=== PATIENT | male | born 1975 | race Caucasian/White ===

== ENCOUNTER 2017-03-03 10:58 | Emergency (ER) | payer BC ==
[~2017-03-03] VITALS: Ht 167.6 cm; Wt 92.4 kg
[~2017-03-03 10:58] MED LIST: ASPI81TA2 PO
[2017-03-03 11:00] VITALS: Ht 167.6 cm; Wt 92.4 kg
--- OUTSIDE RECORDS SUMMARY | 2017-03-03 11:02 | XMS REPORT | Continuity of Care Document ---
Author Author [facility] Organization [facility] Address Unknown Phone Unavailable Care Team Providers [facility] Name Role Phone GABRIELE NIETO MD Primary Care Physician [phone] Insurance Providers Guarantor Kitty Xiong Address [address] [place] [address] [facility] Other Policy Number [id number] Subscriber's Name Kitty Xiong Relationship 18 Self Group Number [id number] Chief Complaint and Reason for Visit Chief Complaint General Reason for Visit Chest pain in adult Problems Past Problems Medical Problem Onset Date Chest pain in adult Unknown Medications Current Home Medications Medication Dose Units Route Directions Days Qty Instructions Start Date Aspirin 81 Mg Tab.chew 1 Tab Oral Daily 30 Tablet 03/03/17 Social History No social history. Hospital Discharge Instructions No hospital discharge instructions. Plan of Care Discharge Date 03/03/17 10:45am Disposition 02 TO [facility] Condition at Discharge Stable Instructions/Education Provided Chest Pain (DC) Prescriptions See Medication Section Referrals GABRIELE NIETO MD Address: [address] [place] [address] [place] [phone] Additional Instructions/Education Go to [facility] Emergency Department now. Functional Status No functional status results. Allergies, Adverse Reactions, Alerts No known allergies. Immunizations Query Response on File Recorded Date/Time Hx Tetanus, Diptheria, Pertussis Y 200006/03/09 10:04am Hx Tetanus, Diptheria, Pertussis Y 200006/03/09 10:04am Influenza Vaccine Hx NO 03/03/17 10:14am Vital Signs Acute Vital Signs Vital Response Date/Time Temperature (Fahrenheit) 97.7 deg F (96.8 - 99.1) 03/03/2017 10:05am Temperature (Calculated Celsius) 36.90249 degrees C (36.0 - 37.3) 03/03/2017 10:05am Pulse Rate (adult) 69 bpm (60 - 100) 03/03/2017 10:05am Respiratory Rate 16 breaths/min (10 - 20) 03/03/2017 10:05am O2 Sat by Pulse Oximetry 96 % (90 - 100) 03/03/2017 10:05am Blood Pressure 126/86 mm Hg 03/03/2017 10:05am Height (Inches) 66.00 inches 03/03/2017 10:05am Weight (Kilograms) 43.100 kg 03/03/2017 10:05am Body Mass Index (BMI) 15.0 03/03/2017 10:05am Results No known relevant diagnostic tests, laboratory data and/or discharge summary. Procedures No known history of procedures. Encounters Encounter Location Arrival/Admit Date Discharge/Depart Date Attending Provider Departed Emergency Room [facility] 03/03/17 10:02am 03/03/17 10: 45am SARA VASQUEZ APRN Recent Diagnosis
--- NOTE | 2017-03-03 11:08 | NUR ---
PROVIDER DR HODGE IN ROOM W/ PT.
--- NOTE | 2017-03-03 11:09 | NUR ---
PO MED ASA GIVEN CHARTED W/ PT TOLERANCE.
[2017-03-03] MEDS ORDERED: NO ROUTINE MEDS (11:10)
[2017-03-03] MEDS ORDERED: ASPIRIN 81 MG CHEWABLE TABLET PO ONE (11:15)
--- NOTE | 2017-03-03 11:16 | ERPDOC ---
Departure Disposition Decision Date: Mar 03, 2017 Disposition Decision Time: 12:39 Disposition: 01 DISCHARGED HOME, SELF-CARE Impression Impression Impression: Primary Impression: Costochondritis Additional Impression: Chest pain Chest pain type: unspecified Qualified Codes: R07.9 - Chest pain, unspecified Severity: Mild Condition: Improved Seen By: Physician only Referrals: GABRIELE NIETO MD (PCP/Family) 1 Day Patient Instructions: Costochondritis (ED), Chest Pain (ED) Problems/Meds/Labs Reviewed?: Yes Medications reviewed and manag: Yes Departure Forms: Return to Work/School Permit Return to Work/School Date: Mar 04, 2017 Follow up care ordered?: Yes Mental Status: Alert, Oriented Scripts Tramadol HCl (Ultram) 50 Mg Tablet 50 MG PO Q6HR for pain, #20 TAB 0 Refills Take 1 tablet, by mouth, every 6 hours. Prov: NOMAN HODGE DO 03/03/17 HPI - Chest Pain General Chief Complaint: Chest Pain Stated Complaint: CHEST PAIN Time Seen by Provider: 11:08 Source: patient (Patient presents [facility] the ER from [facility] for chest pain. Patient apparently developed Right Anterior chest wall pain, after a vomiting episode last night at home. Pain is located in the Right upper anterior chest wall, which is reproducable with palpation and ROM of the right shoulder. Patient states he "Over did it when he vomited last night." Patient doest not speak Czech, a friend is translating.) Exam Limitations: no limitations HPI - Chest Pain Occurred At: home Onset/Timing: Changing over time Duration: 12-24 hrs Pain/Severity Scale: Now: 4/10 (with palpation, deep inhalation, and ROM right Shoulder) Activities at Onset/Context: other (vomiting) Location: anterior R Quality: 'pain' Modifying Factors: IMPROVES WITH: other (ROM right Shoulder), WORSE WITH: movement, palpation Associated Symptoms: denies symptoms Chest Pain Radiation: no radiation Nitro Today/Relief: no nitro taken today Aspirin Treatment Today: 325 mg x 1, provided by ED Prior Chest Pain/Cardiac Martin: no prior chest pain Hx of Similar Symptoms: Yes (Several years ago with stress) Allergies: Coded Allergies: No Known Allergies (Unverified , 03/03/17) Viagra/ED med in past 36 hrs: No Past History Past Medical History Pt denies signifigant PMH Hx Echocardiogram: No Surgical History Denies Surgeries Family History Family PMH: FOUND: diabetes Vaccines Hx Tetanus, Diptheria, Pertuss: Yes (2000) Social History Smoking Status: Never smoker Does patient use chewing tobac: No Second Hand Exposure: No Substance Use Type: does not use Alcohol Intake: occasionally Last Drink: unknown Housing: house Service: No Current Occupational Status: employed Occupational Hazard: No Advance Directives: Yes Full Code Review of Systems Constitutional Constitutional: DENIES: chills, fever Eyes Lids/Accessories: DENIES: erythema, swelling ENMT Ears: DENIES: erythema, pain Balance: DENIES: ataxia, vertigo Sinuses: DENIES: congestion, rhinorrhea Mouth/Throat: DENIES: sore throat Cardiovascular Cardiac: chest pain, DENIES: dyspnea on exertion, orthopnea Rhythm/Rate: DENIES: tachycardia Pulmonary Respiratory: DENIES: cough, dyspnea, sputum GI Upper Abdomen: DENIES: nausea, pain, vomiting Lower Abdomen: DENIES: constipation, diarrhea, pain General: DENIES: dysuria Musculoskeletal General: DENIES: cramps, pain, weakness Integumentary Skin: DENIES: color change, itching, rash Neurological General: DENIES: ataxia, change in strength, headache, numbness, poor coordination, seizures, syncope, vertigo, weakness Psychiatric Psychiatric: DENIES: anxiety, depression, nervousness Hematologic/Lymphatic Hematologic/Lymphatic: DENIES: anemia Allergic/Immunological Allergic/Immunoligical: DENIES: sneezing All other Systems All Other Systems: Reviewed and Negative Physical Exam General General Nourishment: well nourished, well developed, appears stated age, adult General Body Habitus: well groomed Vitals and Pain First Documented Vital Signs Date Time Temp Pulse Resp B/P Pulse Ox O2 Delivery O2 Flow Rate FiO2 03/03/17 11:00 98.5 59 20 141/80 98 Room Air Weight: Kilograms: Height (feet): Height (inches): 66.00 Triage Pain Scale: RN VS reviewed by Provider: Yes Eyes (brief) Eyes Brief: found: EOMI, PERRL ENMT (brief) ENMT Brief: FOUND: TM clear, TM good light reflex, mucosa moist, NOT FOUND: pharnyx erythema Neck (brief) Neck: FOUND: trachea midline, NOT FOUND: adenopathy, tenderness, tracheal deviation Respiratory (brief) Respiratory: FOUND: clear all mathis, equal bilaterally, tenderness (right anterior chest wall with palpation, deep inhalation and ROM right shoulder) Cardiovascular (brief) Cardiac: FOUND: regular rate, regular rhythm Capillary Refill: <2 sec Pulses: all distal extremities, equal, strong Abdomen (brief) Abdominal Brief: FOUND: bowel normo active x4, soft, NOT FOUND: distended, tender Lymphatic (brief) Lymphatic Brief: NOT FOUND: adenopathy Musculoskeletal (brief) Musculoskeletal Brief: FOUND: other (Pain right anterior chest wall with deep inhalation, palpation and ROM right shoulder), tenderness Integumentary (brief) Integumentary Brief: FOUND: pink, warm Neurologic (brief) Neurological Brief: FOUND: CN w/o gross def to obs, gait w/o gross def to obs, motor-no gross deficits, sensory-no gross deficits, NOT FOUND: ataxia Psychiatric (brief) Psychiatric Brief: FOUND: alert, attentive, normal affect, oriented Differential Diagnoses Considering: Acute MS, Anxiety/Panic, Angina, Aortic Dissection, Costochondritis, Esophageal Spasm, GERD, Pancreatitis, Pericarditis, Pleurisy, Pneumothorax, Pneumonia, PSVT, Pulmonary Edema, Pulmonary Embolus, Rib Fracture , Muscle Spasm, Trigger Points, Other Progress Results/Orders Orders Procedure Category Date Status Time Cbc W/Auto LAB 03/03/17 Complete Diff-Reflex Manual 11:12 Cmp - Comprehensive LAB 03/03/17 Complete Metabolic 11:12 Troponin I W LAB 03/03/17 Complete Hemolysis Index 11:12 EKG EKG 03/03/17 Taken 11:12 Chest 1 View RAD 03/03/17 Resulted 11:12 Iv Lock (Ed Only) EDM 03/03/17 Transmitted 11:12 Aspirin (Asa) PHA 03/03/17 Complete 11:15 D-Dimer LAB 03/03/17 Complete Ketorolac (Toradol) PHA 03/03/17 Complete 12:00 Normal Saline (Normal PHA 03/03/17 Complete Saline Iv) 12:00 Lab Results Laboratory Tests Test 03/03/17 11:21 White Blood Count 9.7T/MM3 Red Blood Count 5.46M/MM3 Hemoglobin 16.2GM/DL Hematocrit 48.0% Mean Corpuscular Volume 87.9UM3 Mean Corpuscular Hemoglobin 29.7UUG Mean Corpuscular Hemoglobin Concent 33.8GM/DL RDW Standard Deviation 41.3FL Platelet Count 220T/MM3 Mean Platelet Volume 9.5UM3 Immature Granulocyte % (Auto) 0.2% Neutrophils (%) (Auto) 54.6% Lymphocytes (%) (Auto) 36.1% Monocytes (%) (Auto) 5.5% Eosinophils (%) (Auto) 3.2% Basophils (%) (Auto) 0.4% Absolute Immature Granulocyte (auto 0.02T/MM3 Absolute Neutrophils (auto) 5.3T/MM3 Absolute Lymphocytes (auto) 3.5T/MM3 Absolute Monocytes (auto) 0.5T/MM3 Absolute Eosinophils (auto) 0.3T/MM3 Absolute Basophils (auto) 0.0T/MM3 D-Dimer < 150NG/ML Turbidity < 20 Sodium Level 148MEQ/L Potassium Level 4.0MEQ/L Chloride Level 107MEQ/L Carbon Dioxide Level 28MEQ/L Anion Gap 13MEQ/L Blood Urea Nitrogen 12.0MG/DL Creatinine 0.8MG/DL Glomerular Filtration Rate Calc 107 BUN/Creatinine Ratio 15RATIO Glucose Level 153MG/DL Calculated Osmolality 287MOSM/KG Calcium Level 9.1MG/DL Total Bilirubin 0.80MG/DL Icterus Index < 2 Aspartate Amino Transf (AST/SGOT) 41U/L Alanine Aminotransferase (ALT/SGPT) 78U/L Alkaline Phosphatase 89U/L Troponin I < 0.012ng/ml Total Protein 7.4G/DL Albumin 4.2G/DL Globulin 3.2G/DL Albumin/Globulin Ratio 1.3RATIO Chemistry Specimen Hemolysis < 15 Medications Current ED Medications Aspirin (ASA) 324 mg O ONCE PO Last administered on 03/03/17 11:09; Start at 11:15; Stop 03/03/17 at 11:16; Status DC Ketorolac Tromethamine 30 mg 30 mg O ONCE IV Last administered on 03/03/17 12 :04; Start 03/03/17 at 12:00; Stop 03/03/17 at 12:01; Status DC Sodium Chloride (Normal Saline IV) 1,000 ml @ 0 mls/hr Q0M ONCE IV Last administered on 03/03/17 12:00; Start 03/03/17 at 12:00; Stop 03/03/17 at 12:01 ; Status DC Progress Progress Patient resting comfortably, pain only with palpation, Deep inhalation and ROM exercises of the Right Shoulder Pain resolving with Toradol I discussed admission, or repeat cardiac enzymes and EKG at 4 hours, but the patient refused Patient will follow with his PCP, returning to the ER with worsening symptoms EKG EKG : Rate: 60-100 Rhythm: sinus Thida: normal QRS: normal Intervals: normal ST/T: normal Interpreted by: signing physician EKG ScImage/Picomm EKG interpreted in ScImage/Pic: No Xray Xray : Reason for Exam: Chest pain Xray: CXR Portable Interpretation: Normal, Interpreted by NOMAN Quintana DO Mar 03, 2017 11:16
--- NOTE | 2017-03-03 11:25 | NUR ---
XRAY XRAY IN ROOM FOR PORTABLE CHEST.
[2017-03-03 11:26] LABS: BASOPHILS % (AUTO) 0.4 % (0-2); EOSINOPHILS # (AUTO) 0.3 T/MM3 (0-0.5); EOSINOPHILS % (AUTO) 3.2 % (0-4); HGB - HEMOGLOBIN 16.2 GM/DL (13.5-17.5); IMMATURE GRANULOCYTE # (AUTO) 0.02 T/MM3 (0.00-0.03); IMMATURE GRANULOCYTE % (AUTO) 0.2 % (0.0-0.5); LYMPHOCYTES # (AUTO) 3.5 T/MM3 (1-4.8); LYMPHOCYTES % (AUTO) 36.1 % (23-45); MEAN CORPUSCULAR HGB 29.7 UUG (26-34); MEAN CORPUSCULAR HGB CONC(MCHC 33.8 GM/DL (31-37); MEAN CORPUSCULAR VOLUME 87.9 UM3 (80-100); MEAN PLATELET VOLUME 9.5 UM3 (9.4-12.4); MONOCYTES # (AUTO) 0.5 T/MM3 (0-0.8); MONOCYTES % (AUTO) 5.5 % (0-9.0); NEUTROPHILS #(AUTO)-ABSOLUTE 5.3 T/MM3 (1.8-7.7); NEUTROPHILS % (AUTO) 54.6 % (33-66); RED BLOOD COUNT 5.46 M/MM3 (4.50-5.90); WBC - WHITE BLOOD COUNT 9.7 T/MM3 (4.5-11.0)
[2017-03-03 11:37] LABS: ALBUMIN 4.2 G/DL (3.5-5.0); ALBUMIN/GLOBULIN RATIO 1.3 RATIO (1.1-2.2); ALKALINE PHOSPHATASE 89 U/L (38-126); ALT (SGPT) 78 U/L (21-72); ANION GAP 13 MEQ/L (5-15); AST (SGOT) 41 U/L (17-59); BUN/CREATININE RATIO 15 RATIO (6-26); CALCIUM 9.1 MG/DL (8.4-10.2); CHLORIDE 107 MEQ/L (98-107); CO2 - CARBON DIOXIDE 28 MEQ/L (22-30); CREATININE 0.8 MG/DL (0.8-1.5); GLOMERULAR FILTRATION RATE 107; GLUCOSE 153 MG/DL (75-110); SODIUM 148 MEQ/L (134-144); TOTAL PROTEIN 7.4 G/DL (6.3-8.2)
[2017-03-03] MEDS ORDERED: KETOROLAC 30mg/ml INJECTION IV ONE (12:00)
[2017-03-03] MEDS ORDERED: NORMAL SALINE 1,000 ML IV ONE (12:00)
[2017-03-03] MEDS ORDERED: TRAM50TA53 PO (12:41)
[2017-03-03 13:06] VITALS: BP 137/62; PULSE 62; RESP 24; TEMP 98.3; O2SAT 97
--- NOTE | 2017-03-03 13:06 | NUR ---
DISCHARGE PT GIVEN INSTRUCTIONS FOR CONT CARE OF COSTOCHONDRITIS, W/ RX X1 OF TRAMDOL AND WORK NOTE. PT VERBALIZED UNDERSTANDING OF CONTENT W/ INTERPETUER PRESENT AND SIGNED FORM. PT LEFT ER AMBULATORY ALERT VS CHARTED CONDITION IMPROVED PAIN FREE AND NO ACUTE DISTRESS.
--- NOTE | 2017-03-03 13:15 | DI ---
Indication: ITS.REASON: Right-sided chest pain PROCEDURE: CHEST 1 VIEW: Encounter: Initial Comparison: None FINDINGS: The lungs are clear. There is no abnormal airspace opacity, pleural effusion or pneumothorax identified. The heart size, pulmonary vasculature and mediastinum are within normal limits. No significant skeletal abnormality is seen. IMPRESSION: No acute cardiopulmonary abnormality. .
== END 2017-03-03 13:06 | disposition home or self-care (01) ==
LOC: ED 10:58
DX: R07.89 Other chest pain (principal); M94.0 Chondrocostal junction syndrome [Tietze]
CPT/HCPCS: 71010; 80053; 84484; 85025; 85379; 93005; 96361; 96374; 99284; J1885; J7030